=== PATIENT | male | born 1995 | race Caucasian/White ===

== ENCOUNTER 2017-02-21 20:46 | Emergency (ER) | payer OTHER ==
[~2017-02-21] VITALS: Ht 188 cm; Wt 105.0 kg
[2017-02-21] MEDS ORDERED: NAPROXEN 250 MG TAB PO ONE (23:30)
[2017-02-21 23:57] VITALS: BP 129/74
== END 2017-02-21 23:56 | disposition home or self-care (01) ==
LOC: M ED 20:46
DX: J02.9 Acute pharyngitis, unspecified (principal)

== ENCOUNTER → 2017-09-01 | Outpatient (CLI) | payer OTHER ==
[2017-09-01 18:43] LABS: HEMATOCRIT 45.7 % (42.0-52.0); HEMOGLOBIN 15.2 g/dl (14.0-18.0); MEAN CORPUSCULAR HEMOGLOBIN 30.9 pg (27.0-33.0); MEAN CORPUSCULAR HGB CONC 33.3 g/dl (32.0-36.5); MEAN CORPUSCULAR VOLUME 92.9 fl (80.0-96.0); PLATELET COUNT, AUTOMATED 236 10^3/uL (150-450); RED BLOOD COUNT 4.92 10^6/uL (4.30-6.10); RED CELL DISTRIBUTION WIDTH 13.5 % (11.5-14.5); WHITE BLOOD COUNT 9.2 10^3/uL (4.0-10.0)
[2017-09-01 18:57] LABS: INR 1.09; PROTHROMBIN TIME 14.3 SECONDS (12.4-14.5)
[2017-09-01 18:58] LABS: PARTIAL THROMBOPLASTIN TIME 30.4 SECONDS (26.8-37.9)
[2017-09-01 19:15] LABS: ANION GAP 5 MEQ/L (8-16); BLOOD UREA NITROGEN 14 MG/DL (7-18); CALCIUM LEVEL 9.1 MG/DL (8.5-10.1); CARBON DIOXIDE LEVEL 30 MEQ/L (21-32); CHLORIDE LEVEL 105 MEQ/L (98-107); CREATININE FOR GFR 1.42 MG/DL (0.70-1.30); GLUCOSE, FASTING 81 MG/DL (70-100); POTASSIUM SERUM 4.8 MEQ/L (3.5-5.1); SODIUM LEVEL 140 MEQ/L (136-145)
== END ==
LOC: M SMT 14:08
DX: N50.9 Disorder of male genital organs, unspecified (principal)
CPT/HCPCS: 80048

== ENCOUNTER 2017-09-03 09:21 | Day surgery (SDC) | payer OTHER ==
[~2017-09-03 09:21] MED LIST: KETOROLAC 60 MG/2 ML VIAL (J1885) As Ordered; LIDOCAINE 2% INJ 100 MG/5 ML SYRINGE As Ordered; MIDAZOLAM INJ 2 MG/2 ML VIAL (J2250) As Ordered; ONDANSETRON 4MG/2ML VIAL (J2405) As Ordered; PROPOFOL 200 MG/20 ML VIAL As Ordered; dexameTHASONE 4 MG/ML 1ML VIAL (J1100) As Ordered; fentaNYL 100 MCG/2 ML INJECTION (J3010) As Ordered
[2017-09-03] MEDS ORDERED: LIDOCAINE 1% SDV 5 ML VIAL SQ (09:30)
[2017-09-03] MEDS: LR 1,000 ML IV (09:30)
[2017-09-03] MEDS ORDERED: PHENYLEPHRINE INJ 10MG/ML VIAL (J2370) As Ordered (11:01)
[2017-09-03] MEDS ORDERED: fentaNYL 100 MCG/2 ML INJECTION (J3010) As Ordered (11:13)
[2017-09-03] MEDS: BUPIVACAINE HCL 0.25% 30 ML VIAL As Ordered (11:36)
[2017-09-03] MEDS: LIDOCAINE 1% SDV INJ 30 ML VIAL As Ordered (11:36)
[2017-09-03] MEDS: PERCOCET 5MG/325MG TAB PO ×2 (12:10→12:45)
[2017-09-03] MEDS ORDERED: LR 1,000 ML IV (12:15)
[2017-09-03] MEDS ORDERED: PERCOCET 5MG/325MG TAB PO (12:15)
[2017-09-03] MEDS ORDERED: ONDANSETRON 4MG/2ML VIAL (J2405) IV (12:15)
[2017-09-03] MEDS ORDERED: fentaNYL 100 MCG/2 ML INJECTION (J3010) IV (12:15)
== END 2017-09-03 13:50 | disposition home or self-care (01) ==
LOC: M SDC 09:21
DX: C62.11 Malignant neoplasm of descended right testis (principal)
CPT/HCPCS: 54530

== ENCOUNTER → 2017-09-10 | Outpatient (CLI) | payer OTHER ==
[~2017-09-10] MED LIST changes: +ISOVUE-370 76% 100ML VIAL (Q9967) As Ordered; -KETOROLAC 60 MG/2 ML VIAL (J1885) As Ordered; -LIDOCAINE 2% INJ 100 MG/5 ML SYRINGE As Ordered; -MIDAZOLAM INJ 2 MG/2 ML VIAL (J2250) As Ordered; -ONDANSETRON 4MG/2ML VIAL (J2405) As Ordered; -PROPOFOL 200 MG/20 ML VIAL As Ordered; -dexameTHASONE 4 MG/ML 1ML VIAL (J1100) As Ordered; -fentaNYL 100 MCG/2 ML INJECTION (J3010) As Ordered
== END ==
LOC: M RAD 12:14
DX: C62.90 Malignant neoplasm of unspecified testis, unspecified whether descended or undescended (principal); K57.30 Diverticulosis of large intestine without perforation or abscess without bleeding
CPT/HCPCS: Q9967

== ENCOUNTER → 2017-10-12 | Outpatient (CLI) | payer OTHER ==
[2017-10-12 18:32] LABS: TESTOSTERONE 534 NG/DL (241-827)
[2017-10-12 18:33] LABS: LUTEINIZING HORMONE 5.5 mIU/mL (1.5-9.3)
[2017-10-14 08:11] LABS: HCG SERUM TUMOR MARKER QUANT < 1 mIU/mL (0-3)
== END ==
LOC: M LAB 17:07
DX: C62.90 Malignant neoplasm of unspecified testis, unspecified whether descended or undescended (principal)

== ENCOUNTER → 2017-11-09 | Outpatient (REF) | payer OTHER ==
[2017-11-09 13:20] LABS: INR 0.95; PROTHROMBIN TIME 12.7 SECONDS (12.4-14.5)
[2017-11-09 13:21] LABS: PARTIAL THROMBOPLASTIN TIME 31.6 SECONDS (26.8-37.9)
[2017-11-09 13:38] LABS: FREE T4 1.02 NG/DL (0.76-1.46); THYROID STIMULATING HORMONE 0.984 uIU/ML (0.358-3.740)
[2017-11-09 13:49] LABS: ALPHA FETOPROTEIN TUMOR QUANT 11.6 NG/ML (<8.1)
[2017-11-10 08:06] LABS: HCG SERUM TUMOR MARKER QUANT < 1 mIU/mL (0-3)
== END ==
LOC: M LAB REF 12:54
DX: C62.90 Malignant neoplasm of unspecified testis, unspecified whether descended or undescended (principal)
CPT/HCPCS: 84443

== ENCOUNTER 2017-12-02 17:42 | Emergency (ER) | payer OTHER | END 2017-12-02 20:10 | disposition home or self-care (01) | LOC: M ED 17:42 | DX: H93.19 Tinnitus, unspecified ear (principal); C62.90 Malignant neoplasm of unspecified testis, unspecified whether descended or undescended | CPT/HCPCS: 99283 ==

== ENCOUNTER 2019-05-22 06:13 | Observation (INO) | payer OTHER ==
[2019-05-22] VITALS (8 sets, daily range): BP systolic 128–153; BP diastolic 72–86
[~2019-05-22 06:13] MED LIST changes: -ISOVUE-370 76% 100ML VIAL (Q9967) As Ordered; +LOVE1INJ SC
[2019-05-22] MEDS ORDERED: MORPHINE 4 MG/ML 1ML VIAL/SYRINGE (J2270) IV PRN (10:30)
[2019-05-22] MEDS ORDERED: ONDANSETRON 4MG/2ML VIAL (J2405) IV PRN (10:30)
[2019-05-22] MEDS: NS 1,000 ML IV SCH ×3 (10:41→23:36)
[2019-05-22] MEDS: PANTOPRAZOLE 40MG INJ (PROTONIX) (C9113) IV SCH (10:53)
[2019-05-22] MEDS ORDERED: FLUO20CA19 PO (11:07)
[2019-05-22 11:15] LABS: HEMOGLOBIN 15.4 g/dl (13.5-17.5); MEAN CORPUSCULAR HEMOGLOBIN 29.7 pg (27.0-33.0); MEAN CORPUSCULAR HGB CONC 34.2 g/dl (32.0-36.5); MEAN CORPUSCULAR VOLUME 86.9 fl (80.0-96.0); PLATELET COUNT, AUTOMATED 272 10^3/uL (150-450); RED BLOOD COUNT 5.18 10^6/uL (4.30-6.10)
[2019-05-22 11:52] LABS: ALBUMIN 4.5 GM/DL (3.2-5.2); BILIRUBIN,TOTAL 1.9 MG/DL (0.2-1.0); CALCIUM LEVEL 9.1 MG/DL (8.5-10.1); CREATININE FOR GFR 1.62 MG/DL (0.70-1.30); POTASSIUM SERUM 4.1 MEQ/L (3.5-5.1); TOTAL PROTEIN 7.1 GM/DL (6.4-8.2)
[2019-05-22] MEDS: ENOXAPARIN 40 MG/0.4 ML SYRINGE (J1650) SC SCH (12:20)
--- NOTE | 2019-05-22 12:46 | HPEPDOC ---
General Date of Admission May 22, 2019 at 07:43 Date of Service: May 22, 2019 Chief Complaint The patient is a 23-year-old male admitted with a reason for visit of Epigastric Pain. Source: Patient, Old records Exam Limitations: No limitations Timing/Duration: 24 hours Severity: Moderate Associated Symptoms: Nausea, Vomiting History of Present Illness A 23-year-old male who developed onset of severe upper abdominal pain. It was accompanied by nausea. He did attempt to eat but had very poor appetite. He then developed and had a couple of episodes of bilious emesis last night and today. Pain has persisted despite visit to an outlying emergency room. He has had interventions with analgesics and GI cocktails. He is then transferred to our facility for additional evaluation. CT scan obtained at the outlying facility showed no adenopathy. There is no bowel obstruction. The appendix is normal. His other organs are normal as well. Note is made of a prior lymph node excision. Patient relates he has not had a bowel movement since day before yesterday. He has not had any blood with his stools. He has not had any constipation or diarrhea. He has no known exposures. Home Medications Scheduled Fluoxetine Hcl (Fluoxetine HCl) 20 Mg Capsule, 20 MG PO DAILY, (Reported) Allergies Coded Allergies: No Known Allergies (Unverified , 09/02/17) Past Medical History Medical History Past medical history is especially remarkable for diagnosis of testicular cancer in 2018. He did undergo a right testicular resection and then was treated with chemotherapy. In November of this year. He then underwent extensive lymph node excision. Surgical History Past surgical history includes the aforementioned testicular excision, left knee arthroscopic surgery, lymph node dissection/excision. Family History Family history is noted for a paternal history of bone cancer, otherwise there is no history of chronic medical illnesses. Social History * Smoker: Denies Alcohol: Denies Drugs: marijuana (this use is reported. Rare) Psychosocial History: No pertinent psych hx The patient played football in school. He is currently in the at [employer]. A-FIB/CHADSVASC A-FIB History Current/History of A-Fib/PAF?: No Current PO Anticoag Therapy: No Review of Systems Other systems 10 system review is otherwise negative except as stated in the HPI. Physical Examination General Exam: Positive: Alert, Cooperative, Mild Distress Eye Exam: Positive: PERRLA, Conjunctiva & lids normal ENT Exam: Positive: Atraumatic, Mucous membr. moist/pink Neck Exam: Positive: Supple; Negative: JVD, thyromegaly Chest Exam: Positive: Clear to auscultation, Normal air movement Heart Exam: Positive: Rate Normal, Regular Rhythm, Normal S1, Normal S2; Negative: Murmurs, Rubs Abdomen Exam: Positive: Normal bowel sounds, Tenderness (the patient does have focal tenderness to the epigastric region), Other (the abdomen is otherwise nondistended and he does not have notable central obesity. He does have significant surgical scar.) Extremity Exam: Positive: Normal pulses; Negative: Clubbing, Cyanosis, Edema Skin Exam: Positive: Nl turgor and temperature; Negative: Breakdown, Lesion Neuro Exam: Positive: Normal Speech, Strength at 5/5 X4 ext, Cranial Nerves 3- 12 NL Psych Exam: Positive: Mental status NL, Mood NL Vital Signs Vital Signs Date Time Temp Pulse Resp B/P (MAP) Pulse Ox O2 Delivery O2 Flow Rate FiO2 05/22/19 11:05 22 Laboratory Data Labs 24H Laboratory Tests 2 05/22/19 10:40: Nucleated Red Blood Cells % (auto) 0.0, Anion Gap 6L, Glomerular Filtration Rate 57.0L, Blood Urea Nitrogen 12, Creatinine 1.62H, Sodium Level 139, Potassium Le christopher 4.1, Chloride Level 106, Carbon Dioxide Level 27, Calcium Level 9.1, Aspartate Amino Transf (AST/SGOT) 21, Alanine Aminotransferase (ALT/SGPT) 30, Alkaline Phosphatase 85, Total Bilirubin 1.9H, Total Protein 7.1, Albumin 4.5, Albumin/Globulin Ratio 1.73, Lipase 90 CBC/BMP Laboratory Tests 05/22/19 10:40 Red Blood Count 5.18, Mean Corpuscular Volume 86.9, Mean Corpuscular Hemoglobin 29.7, Mean Corpuscular Hemoglobin Concent 34.2, Red Cell Distribution Width 12.8, Calcium Level 9.1, Aspartate Amino Transf (AST/SGOT) 21, Alanine Aminotransferase (ALT/SGPT) 30, Alkaline Phosphatase 85, Total Bilirubin 1.9 H, Total Protein 7.1, Albumin 4.5 Assessment/Plan 1. Epigastric pain. This is accompanied by nausea and vomiting. It is of acute onset. CT scan is negative for any sort of liver, biliary or pancreatic change/lesion. There is no bowel wall thickening or obstruction. Laboratory data is fairly well within normal limits--please see below. Concern is raised for gastric ulcer disease. Patient is to receive IV fluids, antibiotics, proton pump inhibitor And analgesics with morphine. Case has been discussed with the GI service with plans for evaluation by upper endoscopy. We greatly appreciate their response and assistance. Plan / VTE VTE Prophylaxis Ordered?: Yes Plan IVF: Initiate Diet: Make NPO Activity: Continue Current Medications: Change to IV Diagnostics: Check Labs, Other Diagnostics (patient will undergo evaluation by EGD) Anticipated Discharge: Home MANFRED PROCTOR MD May 22, 2019 12:46
[2019-05-22] MEDS ORDERED: LIDOCAINE 2% INJ 100 MG/5 ML SDV (FOR ANES.) As Ordered ONE (14:38)
[2019-05-22] MEDS ORDERED: fentaNYL 100 MCG/2 ML INJECTION (J3010) As Ordered ONE (14:38)
[2019-05-22] MEDS ORDERED: PROPOFOL 200 MG/20 ML VIAL As Ordered ONE (14:38)
--- NOTE | 2019-05-22 14:51 | ROOR ---
Patient Name: Dieudonne Elias Procedure Date: 05/22/2019 2:36 PM Date of : 1995 Age: 23 Room: [facility] Gender: Male Note Status: Finalized Procedure: Upper Endoscopy + Biopsies Indications: Epigastric abdominal pain Providers: Chandler Rivas MD Referring MD: JULIEN VICTORIA MD Requesting Provider: Medicines: Monitored Anesthesia Care Complications: No immediate complications. Procedure: Pre-Anesthesia Assessment: - The heart rate, respiratory rate, oxygen saturations, blood pressure, adequacy of pulmonary ventilation, and response to care were monitored throughout the procedure. The Endoscope was introduced through the mouth, and advanced to the second part of duodenum. The upper GI endoscopy was accomplished without difficulty. The patient tolerated the procedure well. Findings: The Z-line was regular and was found 40 cm from the incisors. Localized mild inflammation characterized by congestion (edema) and erythema was found in the gastric fundus. Biopsies were taken with a cold forceps for Helicobacter pylori testing. The exam of the duodenum was otherwise normal. Impression: - Z-line regular, 40 cm from the incisors. - Mucosal changes suspicious for gastritis. Biopsied. - The examination was otherwise normal. Recommendation: - Patient has a contact number available for emergencies. The signs and symptoms of potential delayed complications were discussed with the patient. Return to normal activities tomorrow. Written discharge instructions were provided to the patient. - Resume regular diet. - [facility] care. - Continue present medications. - Await pathology results. - Telephone GI clinic for pathology results in 1 week. - Return to referring physician. - The findings and recommendations were discussed with the patient. Chandler Rivas MD Chandler Rivas MD 05/22/2019 2:51:36 PM Electronically signed by Chandler Rivas MD Number of Addenda: 0 Note Initiated On: 05/22/2019 2:36 PM Estimated Blood Loss: Estimated blood loss: none.
[2019-05-22] MEDS: SUCRALFATE 1 GM TAB PO SCH ×2 (17:01→20:07)
[2019-05-22] MEDS ORDERED: SUCRALFATE 1 GM TAB PO ONE (18:00)
[2019-05-23 04:00] VITALS: BP 113/62
[2019-05-23] MEDS: NS 1,000 ML IV SCH (07:11)
[2019-05-23 07:15] LABS: ALBUMIN 3.4 GM/DL (3.2-5.2); ALT/SGPT 20 U/L (12-78); BILIRUBIN,TOTAL 0.9 MG/DL (0.2-1.0); BLOOD UREA NITROGEN 12 MG/DL (7-18); CALCIUM LEVEL 8.1 MG/DL (8.5-10.1); CARBON DIOXIDE LEVEL 27 MEQ/L (21-32); CHLORIDE LEVEL 110 MEQ/L (98-107); CREATININE FOR GFR 1.49 MG/DL (0.70-1.30); GLOMERULAR FILTRATION RATE > 60.0 (>60); GLUCOSE, FASTING 95 MG/DL (70-100); POTASSIUM SERUM 3.6 MEQ/L (3.5-5.1); SODIUM LEVEL 141 MEQ/L (136-145); TOTAL PROTEIN 5.8 GM/DL (6.4-8.2)
[2019-05-23 08:00] VITALS: BP 135/72
[2019-05-23] MEDS: ENOXAPARIN 40 MG/0.4 ML SYRINGE (J1650) SC SCH (08:17)
[2019-05-23] MEDS: PANTOPRAZOLE 40MG INJ (PROTONIX) (C9113) IV SCH (08:17)
[2019-05-23] MEDS: SUCRALFATE 1 GM TAB PO SCH (08:17)
[2019-05-23] MEDS ORDERED: SUCR1TA PO (10:24)
[2019-05-23] MEDS ORDERED: PROT1TAB2 PO (10:24)
--- NOTE | 2019-05-23 10:29 | DS.PDOC ---
Discharge Summary General Date of Admission May 22, 2019 at 07:43 Date of Discharge May 23, 2019 Specialist/Consultants Involve: Chadnler Rivas Discharge Summary PROCEDURES PERFORMED DURING STAY: [None]. ADMITTING DIAGNOSES: 1. . DISCHARGE DIAGNOSES: 1. . COMPLICATIONS/CHIEF COMPLAINT: Epigastric Pain. HISTORY OF PRESENT ILLNESS: . HOSPITAL COURSE: . DISCHARGE MEDICATIONS: Please see below. ALLERGIES: Please see below. PHYSICAL EXAMINATION ON DISCHARGE: VITAL SIGNS: Please see below. GENERAL: HEENT: NECK: CARDIOVASCULAR EXAMINATION: RESPIRATORY EXAMINATION: ABDOMINAL EXAMINATION: EXTREMITIES: SKIN: NEUROLOGICAL EXAMINATION: PSYCHIATRIC EXAMINATION: LABORATORY DATA: Please see below. IMAGING: PROGNOSIS: ACTIVITY: [As tolerated]. DIET: DISCHARGE PLAN: DISPOSITION: . DISCHARGE INSTRUCTIONS: 1. . ITEMS TO FOLLOWUP ON ON OUTPATIENT: 1. . DISCHARGE CONDITION: [Stable]. TIME SPENT ON DISCHARGE: Greater than minutes. Vital Signs/I&Os Vital Signs Date Time Temp Pulse Resp B/P (MAP) Pulse Ox O2 Delivery O2 Flow Rate FiO2 05/23/19 08:00 97.9 61 16 135/72 (93) 100 I&O- Last 24 Hours up to 6 AM 05/23/19 06:00 Intake Total 2207 ml Output Total 1350 ml Balance 857 ml Laboratory Data Labs 24H Laboratory Tests 2 05/22/19 10:40: Nucleated Red Blood Cells % (auto) 0.0, Anion Gap 6L, Glomerular Filtration Rate 57.0L, Blood Urea Nitrogen 12, Creatinine 1.62H, Sodium Level 139, Potassium Level 4.1, Chloride Level 106, Carbon Dioxide Level 27, Calcium Level 9.1, Aspartate Amino Transf (AST/SGOT) 21, Alanine Aminotransferase (ALT/SGPT) 30, Alkaline Phosphatase 85, Total Bilirubin 1.9H, Total Protein 7.1, Albumin 4.5, Albumin/Globulin Ratio 1.73, Lipase 90 05/23/19 06:26: Anion Gap 4L, Glomerular Filtration Rate > 60.0, Blood Urea Nitrogen 12, Creatinine 1.49H, Sodium Level 141, Potassium Level 3.6, Chloride Level 110H, Carbon Dioxide Level 27, Calcium Level 8.1L, Aspartate Amino Transf (AST/SGOT) 13, Alanine Aminotransferase (ALT/SGPT) 20, Alkaline Phosphatase 69, Total Bilirubin 0.9#, Total Protein 5.8L, Albumin 3.4#, Albumin/Globulin Ratio 1.42 CBC/BMP Laboratory Tests 05/22/19 10:40 Red Blood Count 5.18, Mean Corpuscular Volume 86.9, Mean Corpuscular Hemoglobin 29.7, Mean Corpuscular Hemoglobin Concent 34.2, Red Cell Distribution Width 12.8, Calcium Level 9.1, Aspartate Amino Transf (AST/SGOT) 21, Alanine Aminotransferase (ALT/SGPT) 30, Alkaline Phosphatase 85, Total Bilirubin 1.9 H, Total Protein 7.1, Albumin 4.5 05/23/19 06:26 Calcium Level 8.1 L, Aspartate Amino Transf (AST/SGOT) 13, Alanine A minotransferase (ALT/SGPT) 20, Alkaline Phosphatase 69, Total Bilirubin 0.9 #, Total Protein 5.8 L, Albumin 3.4 # Discharge Medications Scheduled Fluoxetine Hcl (Fluoxetine HCl) 20 Mg Capsule, 20 MG PO DAILY, (Reported) Pantoprazole Sodium (Protonix) 40 Mg Tablet.dr, 40 MG PO DAILY Sucralfate (Sucralfate) 1 Gm Tablet, 1 GM PO ACHS Allergies Coded Allergies: No Known Allergies (Unverified , 09/02/17) MANFRED PROCTOR MD May 23, 2019 10:29
--- NOTE | 2019-05-29 12:43 | CR ---
DATE OF CONSULTATION: 05/22/2019 This is a 23-year white male who presented to [facility] Emergency Room with severe burning upper abdominal pain. Symptoms were associated with nausea and some mild poor appetite. No apparent fevers, night sweats, or shaking chills. The patient was given analgesics and a GI cocktail with some relief of his symptoms. DIAGNOSTIC TESTS: Included abdominal CT which was completely negative for any pathology. The patient's laboratory studies were also within normal limits. PAST MEDICAL HISTORY: Is positive for Paxil 20 mg daily. No known allergies. PAST MEDICAL HISTORY: Is positive for testicular carcinoma in 2018. The patient has undergone chemotherapy and exploratory resection of lymph nodes of the abdomen. Past medical history as above. REVIEW OF SYSTEMS: Noncontributory. PHYSICAL EXAMINATION: General: He is a well-developed, well-nourished white male in no acute distress. Appears stated age. Chest is clear to auscultation. Cardiovascular examination: Showed a regular rhythm. No murmurs or gallops. Normal physiological split S1-S2. Abdomen: Soft, nontender. No masses, guarding, rebound, no splenomegaly. Bowel sounds positive. ANALYSIS: Abdominal pain of unknown etiology. PLAN: Will be to: 1. Set the patient up for an upper endoscopy with biopsies for further evaluation of his stomach for his symptoms. 2. Have the patient maintained on a proton pump inhibitor (PPI) twice a day with Carafate 2-4 times daily. 3. An upper endoscopy for evaluation.
== END 2019-05-23 11:05 | disposition home or self-care (01) ==
LOC: M MSPAV 07:43 → M PED 23:19
PROVIDERS: ADMIT Internal Medicine Nephrology; ATTEND Internal Medicine Nephrology
DX: R10.13 Epigastric pain (principal); K31.89 Other diseases of stomach and duodenum; Z79.899 Other long term (current) drug therapy; Z85.47 Personal history of malignant neoplasm of testis; Z92.21 Personal history of antineoplastic chemotherapy
CPT/HCPCS: 36415; 43239; 80053; 83690; 85027; 88305; 96361; 96372; 96374; 96375; 96376; C9113; J1650; J2270; J3010

== ENCOUNTER → 2019-08-14 | Outpatient (CLI) | payer OTHER ==
[~2019-08-14] MED LIST changes: +FLUO20CA19 PO; +PROT1TAB2 PO; +SUCR1TA PO
--- NOTE | 2019-08-14 12:30 | REP ---
Digital diagnostic bilateral mammography with CAD and focused right breast sonography: History: Right breast lump. Tender. Previous history of testicular cancer. Mammographic findings: A skin marker is affixed to the skin at the site of the periareolar lump which projects just lateral to the nipple. CC and mediolateral oblique views of each breast were obtained. There is no evidence of subareolar mass density on the right. A normal appearing lymph node is visible well under a centimeter in diameter in the right axilla. No spiculation or worrisome skin change, microcalcification or architectural distortion is seen mammographically. Sonographic findings: The right breast is scanned in the area of palpable lump just lateral to the nipple at 8 to 9 o'clock. No mass lesion is seen. No cyst is observed. There is minimal hypoechoic tissue just deep to the nipple consistent with minimal gynecomastia. Impression: BIRADS 2: BI-RADS/ACR category 2 mammogram. Benign Findings. Sonographic findings consistent with minimal gynecomastia just beneath the nipple. Otherwise negative. Clinical followup is advised. This mammogram was interpreted with the aid of an FDA-approved computer-aided detection system. The patient states that he has not had a clinical breast exam in over a year. Electronically Signed by Dieudonne Edwards MD 08/14/2019 01:24 P
== END ==
LOC: M RAD 09:14
PROVIDERS: ATTEND Physician Assistant
DX: N63.10 Unspecified lump in the right breast, unspecified quadrant (principal)